=== PATIENT | female | born 1945 | race Caucasian/White ===

== ENCOUNTER 2017-06-29 18:10 | Outpatient (CLI) | payer SELFPAY | END 2017-06-29 18:11 | disposition EMS.NT | LOC: EMS 18:10 | PROVIDERS: ATTEND Surgery | DX: R55 Syncope and collapse (principal) ==

== ENCOUNTER 2019-02-26 12:53 | Outpatient (CLI) | payer MEDICARE, OTHER | END 2019-02-26 12:54 | disposition short-term general hospital (02) | LOC: EMS 12:53 | PROVIDERS: ATTEND Surgery | DX: R07.9 Chest pain, unspecified (principal) | CPT/HCPCS: A0425; A0427 ==

== ENCOUNTER 2020-07-14 09:17 | Outpatient (CLI) | payer MEDICARE, OTHER | END 2020-07-14 09:18 | disposition left against medical advice (07) | LOC: EMS 09:17 | DX: R55 Syncope and collapse (principal) ==

== ENCOUNTER 2023-06-21 08:00 | Outpatient (CLI) | payer MEDICARE | END 2023-06-21 23:59 | disposition short-term general hospital (02) | LOC: EMS 08:00 | DX: R00.0 Tachycardia, unspecified (principal); R06.02 Shortness of breath; R07.9 Chest pain, unspecified | CPT/HCPCS: A0425; A0427; A0888 ==